=== PATIENT | male | born 1945 | race Caucasian/White ===

== ENCOUNTER → 2017-01-20 | Outpatient (CLI) | payer MEDICARE ==
--- NOTE | 2017-01-20 11:41 | MR ---
EXAMINATION TYPE: MR shoulder LT wo con DATE OF EXAM: 01/20/2017 11:24 AM COMPARISON: NONE HISTORY: Pain in left shoulder TECHNIQUE: Multiplanar, multisequence imaging of the left shoulder is performed without contrast. FINDINGS: There is no evidence of an os acromiale. There are moderate hypertrophic inflammatory changes in the left AC joint. The acromion is neutral. There is diffuse tendinosis involving the supraspinatus tendon as well as anterior fibers of the infr aspinatus tendon. No definite rotator cuff tear is seen. There is pseudocystic change in the humeral head, an indirect sign of impingement. There is also pseu docystic change in the glenoid. There is cartilaginous loss. There is some decentering of the humerus within the glenohumeral joint. There is a small amount of abnormal signal in the biceps tendon is intra-articular portion. This may represent some tendinosis or small intrasubstance tear. IMPRESSION: 1. DIFFUSE TENDINOSIS OF THE SUPRASPINATUS TENDON AND TO A LESSER EXTENT THE INFRASPINATUS TENDON. 2. EVIDENCE OF OSTEOARTHRITIS IN THE GLENOHUMERAL JOINT. 3. MODERATE HYPERTROPHIC INFLAMMATORY CHANGES IN THE LEFT AC JOINT. 4. PSEUDOCYSTIC CHANGES WITHIN THE HUMERAL HEAD, AN INDIRECT SIGN OF IMPINGEMENT. 5. SOME ABNORMAL SIGNAL WITHIN THE INTRA-ARTICULAR BICEPS TENDON, EITHER REPRESENTING SOME MILD TENDI NOSIS OR SMALL INTRASUBSTANCE TEAR.
== END | disposition home or self-care (01) ==
LOC: RADMRIMAIN 10:42
PROVIDERS: ATTEND Orthopaedic Surgery
DX: M19.012 Primary osteoarthritis, left shoulder (principal); M67.814 Other specified disorders of tendon, left shoulder

== ENCOUNTER → 2019-10-02 | Outpatient (CLI) | payer MEDICARE ==
--- NOTE | 2019-10-03 10:37 | BD ---
EXAMINATION TYPE: Axial Bone Density DATE OF EXAM: 10/02/2019 COMPARISON: NONE CLINICAL HISTORY: Height: Weight: FRAX RISK QUESTIONS: Alcohol (3 or more units per day): no Family History (Parent hip fracture): no Glucocorticoids (More than 3mos): no (Ex: prednisone, prednisolone, methylprednisolone, dexamethasone, and hydrocortisone). History of Fracture in Adulthood: no Secondary Osteoporosis: 1. Type 1 Diabetes: no 2. Hyperthyroidism: no 3. Menopause before 45: n/a 4. Malnutrition: no 5. Chronic liver disease: no Rheumatoid Arthritis: no Current Tobacco Use: no RISK FACTORS HISTORY OF: Family History of Osteoporosis: no Active: yes Diet low in dairy products/other sources of calcium: yes Lost more than 2 inches in height since high school: no MEDICATIONS: prilosec, benacar, lipitor, norvasc, vit d, eye meds, gout meds, water pill Additional History: EXAM MEASUREMENTS: Bone mineral densitometry was performed using the Venuemob System. Bone mineral density as measured about the Lumbar spine is: ----- L1-L4(G/cm2): 1.314 T Score Values are as follows: ----- L2: 1.4 ----- L3: 1.8 ----- L4: 0.5 ----- L1-L4: 1.1 Bone mineral density has: increased 0.5 % since study of: 08.03.2016 Bone mineral density about the R hip (g/cm2): 0.897 Bone mineral density about the L hip (g/cm2): 0.887 T Score values are as follows: -----R Neck: -1.0 -----L Neck: -1.1 -----R Total: -0.5 -----L Total: -0.7 Bone mineral density has: decreased -0.7 % since study of: 08.03.2016 IMPRESSION: No evidence for osteoporosis or osteopenia. NOTE: T-SCORE=SD OF THE YOUNG ADULT MEAN.
== END | disposition home or self-care (01) ==
LOC: RADBDWWP 15:40
PROVIDERS: ATTEND Family Medicine
DX: M89.9 Disorder of bone, unspecified (principal)
CPT/HCPCS: 77080

== ENCOUNTER 2019-11-28 08:03 | Day surgery (SDC) | payer MEDICARE ==
[2019-11-27 08:56] VITALS: BMI 28.5
[~2019-11-28 08:03] MED LIST: LACTATED RINGERS 1,000 ML IV SCH
[2019-11-28 08:28] VITALS: TEMP 97.6
[2019-11-28] MEDS ORDERED: PROPOFOL 10 MG/ML 20 ML VIAL IV ONE (08:48)
--- NOTE | 2019-11-28 08:49 | P.GSHP ---
History of Present Illness H&P Date: 11/28/19 Chief Complaint: History of rectal polyps This a 74-year-old male presents today for colonoscopy. Patient presents today for colonoscopy. He has a previous history of rectal polyps Past Medical History Past Medical History: Cancer, GERD/Reflux, Hyperlipidemia, Hypertension Additional Past Medical History / Comment(s): PROSTATE CANCER. GOUTY ARTHRITIS. 7MM POLYP FOUND ON MRI AT [facility] History of Any Multi-Drug Resistant Organisms: None Reported Past Surgical History: Hernia Repair, Orthopedic Surgery Additional Past Surgical History / Comment(s): HERNIA X 3, COLONOSCOPY, EGD, BILAT CATARACTS, LT SECOND TOE SX, GANGLION CYST FROM RT MIDDLE FINGER, REPAIR RT MIDDLE FINGER INJURY, FATTY CYSTS REMOVED FROM BACK AND AND CHEST, METAL REMOVED FROM RT EYE Past Anesthesia/Blood Transfusion Reactions: Postoperative Nausea & Vomiting (PONV) Smoking Status: Never smoker - Past Family History Mother Family Medical History: No Reported History Medications and Allergies Home Medications Medication Instructions Recorded Confirmed Type Acetaminophen/Caffeine [Excedrin 1 each PO DAILY 11/27/19 11/28/19 History Tension Headache Cplt] Allopurinol [Zyloprim] 300 mg PO DAILY 11/27/19 11/27/19 History Atorvastatin [Lipitor] 40 mg PO HS 11/27/19 11/28/19 History Colchicine 0.6 mg PO DAILY PRN 11/27/19 11/27/19 History Hydrochlorothiazide [Hydrodiuril] 25 mg PO DAILY 11/27/19 11/27/19 History Olmesartan Medoxomil [Benicar] 40 mg PO DAILY 11/27/19 11/28/19 History Omeprazole [PriLOSEC] 20 mg PO AC-BRKFST 11/27/19 11/28/19 History amLODIPine BESYLATE [Norvasc] 5 mg PO HS 11/27/19 11/27/19 History Allergies Allergy/AdvReac Type Severity Reaction Status Date / Time amoxicillin [From Augmentin] Allergy Rash/Hives Verified 11/28/19 08:22 atenolol [From Tenormin] Allergy Rash/Hives Verified 11/28/19 08:22 clavulanic acid Allergy Rash/Hives Verified 11/28/19 08:22 [From Augmentin] Penicillins Allergy Rash/Hives Verified 11/28/19 08:22 rabeprazole [From AcipHex] Allergy Rash/Hives Verified 11/28/19 08:22 Sulfa (Sulfonamide Allergy Rash/Hives Verified 11/28/19 08:22 Antibiotics) sulfamethoxazole Allergy Rash/Hives Verified 11/28/19 08:22 [From Bactrim] trimethoprim [From Bactrim] Allergy Rash/Hives Verified 11/28/19 08:22 monosodium glutamate [MSG] AdvReac Nausea & Verified 11/28/19 08:22 Vomiting Surgical - Exam Vital Signs Temp Pulse Resp BP Pulse Ox 97.6 F 75 18 173/87 98 11/28/19 08:27 11/28/19 08:27 11/28/19 08:27 11/28/19 08:27 11/28/19 08:27 - General well developed, well nourished, no distress - Eyes PERRL - ENT normal pinna - Neck no masses - Respiratory normal expansion - Cardiovascular Rhythm: regular - Abdomen Abdomen: soft, non tender Assessment and Plan Assessment: History of rectal polyps. We'll perform colonoscopy.
--- NOTE | 2019-11-28 09:14 | P.OP ---
Date of Procedure: 11/28/19 Preoperative Diagnosis: History of rectal polyps Postoperative Diagnosis: Diverticulosis Procedure(s) Performed: Colonoscopy Anesthesia: MAC Surgeon: Tarun Faria Pathology: none sent Condition: stable Disposition: PACU Description of Procedure: The patient's placed on the endoscopy table in the lateral position. He received IV sedation. Digital rectal exam was performed which revealed no abnormalities. Flexible colonoscope was then placed patient anus and passed throughout the colon. The scope could not be passed beyond the hepatic flexure secondary to poor bowel prep this point scope withdrawn. The transverse colon had diverticulosis. In the descending; there is extensive diverticular changes. Scope was then brought back the rectum this appeared normal. Scope was brought patient.
[2019-11-28 09:37] VITALS: BP 183/90; PULSE 69; RESP 16
== END 2019-11-28 09:57 | disposition home or self-care (01) ==
LOC: ORWHC2ENDO 08:03
PROVIDERS: ATTEND Surgery
DX: K57.30 Diverticulosis of large intestine without perforation or abscess without bleeding (principal); Z87.19 Personal history of other diseases of the digestive system; K21.9 Gastro-esophageal reflux disease without esophagitis; E78.5 Hyperlipidemia, unspecified; I10 Essential (primary) hypertension; M10.00 Idiopathic gout, unspecified site; Z85.46 Personal history of malignant neoplasm of prostate; Z98.890 Other specified postprocedural states; Z98.42 Cataract extraction status, left eye; Z98.41 Cataract extraction status, right eye; Z87.2 Personal history of diseases of the skin and subcutaneous tissue; Z87.828 Personal history of other (healed) physical injury and trauma; Z91.89 Other specified personal risk factors, not elsewhere classified; Z79.899 Other long term (current) drug therapy; Z88.0 Allergy status to penicillin; Z88.8 Allergy status to other drugs, medicaments and biological substances; Z88.2 Allergy status to sulfonamides; Z91.02 Food additives allergy status; Z97.2 Presence of dental prosthetic device (complete) (partial)
CPT/HCPCS: 45330; J2704; 45378

== ENCOUNTER 2021-07-09 04:36 | Emergency (ER) | payer MEDICARE ==
[2021-07-09] MEDS ORDERED: CASIRIVIMAB (REGN10933) (EUA) 600 MG, IMDEVIMAB (REGN10987) (EUA) 600 MG in SODIUM CHLO... IVPB ONE (05:45)
[2021-07-09] MEDS ORDERED: SODIUM CHLORIDE 0.9% 50 ML IVPB ONE (05:45)
[2021-07-09] MEDS ORDERED: ACETAMINOPHEN TAB 325 MG TAB PO STA (06:09)
--- NOTE | 2021-07-09 07:11 | XR ---
EXAMINATION TYPE: XR chest 1V portable DATE OF EXAM: 07/09/2021 COMPARISON: NONE HISTORY: Cough and fever, positive Covid test TECHNIQUE: Single frontal view of the chest is obtained. FINDINGS: Lung volumes are low and the patient is rotated. There is no evident pneumothorax or pleur al effusion. Patchy density noted within the lung bases. Cardiac mediastinal silhouette is within nor mal limits accounting for technique. Aorta is atheromatous. IMPRESSION: Correlate for atelectasis versus pneumonia, follow-up PA and lateral chest x-ray may be of benefit, exam is expiratory and rotated.
[2021-07-09 07:13] VITALS: PULSE 88
--- NOTE | 2021-07-09 07:22 | ED ---
General Adult HPI - General Chief complaint: Nausea/Vomiting/Diarrhea Stated complaint: Covid+ Time Seen by Provider: 07/09/21 04:42 Source: patient, EMS Mode of arrival: EMS Limitations: no limitations - History of Present Illness Initial comments: This patient is 75-year-old man who presents with complaint that he is feeling fatigued, having dyspnea, cough and fever. The patient states that he did test positive for Covid infection last week. He has been managing at home but over the past day to 2 hours been feeling worse and more worn down. Patient denies chest pain. No leg pain or swelling. No change in bowel movements or urination. -: days(s) Quality: aching Consistency: constant Improves with: none Worsens with: none Associated Symptoms: cough, fever/chills, weakness, other (Myalgias) - Related Data Home Medications Medication Instructions Recorded Confirmed Acetaminophen/Caffeine [Excedrin 1 each PO DAILY 11/27/19 11/28/19 Tension Headache Cplt] Atorvastatin [Lipitor] 40 mg PO HS 11/27/19 11/28/19 Colchicine 0.6 mg PO DAILY PRN 11/27/19 11/27/19 Olmesartan Medoxomil [Benicar] 40 mg PO DAILY 11/27/19 11/28/19 Omeprazole [PriLOSEC] 20 mg PO AC-BRKFST 11/27/19 11/28/19 allopurinoL [Zyloprim] 300 mg PO DAILY 11/27/19 11/27/19 amLODIPine BESYLATE [Norvasc] 5 mg PO HS 11/27/19 11/27/19 hydroCHLOROthiazide [Hydrodiuril] 25 mg PO DAILY 11/27/19 11/27/19 Previous Rx's Medication Instructions Recorded Azithromycin [Zithromax Z-pack (6 250 mg PO DIRECTED #6 tab 07/09/21 tabs)] Allergies Allergy/AdvReac Type Severity Reaction Status Date / Time amoxicillin [From Augmentin] Allergy Rash/Hives Verified 07/09/21 04:53 atenolol [From Tenormin] Allergy Rash/Hives Verified 07/09/21 04:53 clavulanic acid Allergy Rash/Hives Verified 07/09/21 04:53 [From Augmentin] Penicillins Allergy Rash/Hives Verified 07/09/21 04:53 rabeprazole [From AcipHex] Allergy Rash/Hives Verified 07/09/21 04:53 Sulfa (Sulfonamide Allergy Rash/Hives Verified 07/09/21 04:53 Antibiotics) sulfamethoxazole Allergy Rash/Hives Verified 07/09/21 04:53 [From Bactrim] trimethoprim [From Bactrim] Allergy Rash/Hives Verified 07/09/21 04:53 monosodium glutamate [MSG] AdvReac Nausea & Verified 07/09/21 04:53 Vomiting Review of Systems ROS Statement: Those systems with pertinent positive or pertinent negative responses have been documented in the HPI. ROS Other: All systems not noted in ROS Statement are negative. Constitutional: Reports: fever, chills, weakness ENT: Denies: throat pain Respiratory: Reports: dyspnea. Denies: cough, wheezes, hemoptysis Cardiovascular: Denies: chest pain, palpitations, orthopnea, edema, syncope Gastrointestinal: Denies: abdominal pain, nausea, vomiting, diarrhea, constipation Genitourinary: Denies: dysuria, hematuria Musculoskeletal: Reports: myalgia. Denies: back pain Skin: Denies: rash Neurological: Denies: headache, weakness, numbness Past Medical History Past Medical History: Cancer, GERD/Reflux, Hyperlipidemia, Hypertension Additional Past Medical History / Comment(s): PROSTATE CANCER. GOUTY ARTHRITIS. 7MM POLYP FOUND ON MRI AT [facility] History of Any Multi-Drug Resistant Organisms: None Reported Past Surgical History: Hernia Repair, Orthopedic Surgery Additional Past Surgical History / Comment(s): HERNIA X 3, COLONOSCOPY, EGD, BILAT CATARACTS, LT SECOND TOE SX, GANGLION CYST FROM RT MIDDLE FINGER, REPAIR RT MIDDLE FINGER INJURY, FATTY CYSTS REMOVED FROM BACK AND AND CHEST, METAL REMOVED FROM RT EYE Past Anesthesia/Blood Transfusion Reactions: Postoperative Nausea & Vomiting (PONV) Past Psychological History: No Psychological Hx Reported Smoking Status: Never smoker Past Alcohol Use History: None Reported Past Drug Use History: None Reported - Past Family History Mother Family Medical History: No Reported History General Exam Limitations: no limitations General appearance: alert, in no apparent distress Head exam: Present: atraumatic, normocephalic Eye exam: Present: normal appearance. Absent: scleral icterus, conjunctival injection ENT exam: Present: normal oropharynx Neck exam: Present: normal inspection, full ROM. Absent: meningismus Respiratory exam: Present: wheezes (There are a few scattered crackles bilaterally). Absent: normal lung sounds bilaterally, respiratory distress, rales, rhonchi, stridor, accessory muscle use, decreased breath sounds Cardiovascular Exam: Present: regular rate, normal rhythm, normal heart sounds. Absent: systolic murmur, diastolic murmur, rubs, gallop GI/Abdominal exam: Present: soft. Absent: distended, tenderness, guarding, rebound, rigid, mass Back exam: Present: normal inspection. Absent: CVA tenderness (R), CVA tenderness (L) Neurological exam: Present: alert Skin exam: Present: warm, dry, intact, normal color. Absent: rash Course Vital Signs 07/09/21 07/09/21 07/09/21 04:43 04:58 05:00 Temperature 102.7 F H Pulse Rate 98 97 Respiratory 22 22 20 Rate Blood Pressure 162/82 157/80 O2 Sat by Pulse 96 96 Oximetry 07/09/21 07/09/21 07/09/21 06:06 06:48 07:50 Temperature 101.2 F H 98.1 F Pulse Rate 101 H 88 Respiratory 20 20 18 Rate Blood Pressure 140/86 138/69 O2 Sat by Pulse 97 95 95 Oximetry 07/09/21 08:43 Temperature 98.1 F Pulse Rate 88 Respiratory 18 Rate Blood Pressure 109/63 O2 Sat by Pulse 95 Oximetry Medical Decision Making - Medical Decision Making Patient is 75-year-old man with Covid infection. Patient is given hydration and monoclonal antibody therapy. Patient's oxygen saturations are good. Discussed appropriate further care and follow-up as well as return parameters. Disposition Clinical Impression: COVID-19, Pneumonia Disposition: HOME SELF-CARE Condition: Fair Instructions (If sedation given, give patient instructions): Coronavirus Disease 2019 (COVID-19) Prescriptions: Azithromycin [Zithromax Z-pack (6 tabs)] 250 mg PO DIRECTED #6 tab Is patient prescribed a controlled substance at d/c from ED?: No Referrals: Sergio Sam DO [Primary Care Provider] - 1-2 days
[2021-07-09] MEDS ORDERED: SODIUM CHLORIDE 0.9% 1,000 ML IV ONE (07:27)
[2021-07-09 07:51] VITALS: RESP 18; TEMP 98.1
[2021-07-09 08:44] VITALS: BP 109/63
== END 2021-07-09 08:44 | disposition home or self-care (01) ==
LOC: EC 04:36
DX: U07.1 COVID-19 (principal); J12.82 Pneumonia due to coronavirus disease 2019; I10 Essential (primary) hypertension; K21.9 Gastro-esophageal reflux disease without esophagitis; E78.5 Hyperlipidemia, unspecified; Z88.0 Allergy status to penicillin; Z88.2 Allergy status to sulfonamides; Z88.1 Allergy status to other antibiotic agents; Z85.46 Personal history of malignant neoplasm of prostate
CPT/HCPCS: 99285; 96365; 96361; 71045; Q0243

== ENCOUNTER → 2021-10-04 | Outpatient (CLI) | payer MEDICARE ==
--- NOTE | 2021-10-05 13:20 | ECHOF ---
Referral Reason:R60.0 edema, R42 dizzinesss MEASUREMENTS -------- HEIGHT: 182.9 cm WEIGHT: 99.3 kg BP: RVIDd: 3.2 cm (< 3.3) IVSd: 1.0 cm (0.6 - 1.1) LVIDd: 4.3 cm (3.9 - 5.3) LVPWd: 1.4 cm (0.6 - 1.1) IVSs: 1.5 cm LVIDs: 3.7 cm LVPWs: 1.3 cm LAESV Index (A-L): 19.36 ml/m Ao Diam: 4.1 cm (2.0 - 3.7) AV Cusp: 2.3 cm (1.5 - 2.6) MV EXCURSION: 10.542 mm (> 18.000) MV EF SLOPE: 53 mm/s (70 - 150) EPSS: 0.6 cm MV E Omari: 0.50 m/s MV DecT: 250 ms MV A Omari: 0.85 m/s MV E/A Ratio: 0.59 AR PHT: 446 ms RAP: 5.00 mmHg RVSP: 28.21 mmHg FINDINGS -------- Sinus rhythm. This was a technically good study. LV size, wall thickness and systolic function are normal, with an EF greater than 55%. The left zhao tricular size is normal. The right ventricle is normal in size. Normal LA size by volume 22+/-6 ml/m2. The right atrial size is normal. There is mild aortic regurgitation. Mild mitral annular calcification present. Mild mitral regurgitation is present. Mild tricuspid regurgitation present. Right ventricular systolic pressure is normal at < 35 mmHg. There is no pulmonic regurgitation present. Echo free space represents a pericardial fat pad. CONCLUSIONS -------- 1. LV size, wall thickness and systolic function are normal, with an EF greater than 55%. 2. The left ventricular size is normal. 3. The right ventricle is normal in size. 4. Normal LA size by volume 22+/-6 ml/m2. 5. The right atrial size is normal. 6. There is mild aortic regurgitation. 7. Mild mitral annular calcification present. 8. Mild mitral regurgitation is present. 9. Mild tricuspid regurgitation present. 10. Echo free space represents a pericardial fat pad. GARDENER: Elsie Paiz RDCS
== END | disposition home or self-care (01) ==
LOC: RADECHMAIN 14:14
PROVIDERS: ATTEND Family Medicine
DX: I35.8 Other nonrheumatic aortic valve disorders (principal)
CPT/HCPCS: 93306

== ENCOUNTER → 2021-10-04 | Outpatient (CLI) | payer MEDICARE ==
--- NOTE | 2021-10-04 19:11 | US ---
EXAMINATION TYPE: US carotid duplex BILAT DATE OF EXAM: 10/04/2021 COMPARISON: NONE CLINICAL HISTORY: 76-year-old male R42 DIZZINESS AND GIDDINESS,R53.83 FATIGUE. TECHNIQUE: Carotid duplex ultrasound examination. Indirect Doppler criteria was utilized. FINDINGS: EXAM MEASUREMENTS: RIGHT: Peak Systolic Velocity (PSV) cm/sec ----- Right CCA: 94.4 ----- Right ICA: 113 ----- Right ECA: 143 ICA/CCA ratio: 1.1 RIGHT: End Diastole cm/sec ----- Right CCA: 17.2 ----- Right ICA: 35.6 ----- Right ECA: 26.8 LEFT: Peak Systolic Velocity (PSV) cm/sec ----- Left CCA: 104 ----- Left ICA: 106 ----- Left ECA: 109 ICA/CCA ratio: 1.0 LEFT: End Diastole cm/sec ----- Left CCA: 24 ----- Left ICA: 27 ----- Left ECA: 12 VERTEBRALS (direction of flow): Right Vertebral: Antegrade Left Vertebral: Antegrade Rhythm: Normal Aircraft Maintenance Supervisor notes: Plaque seen in the left bulb/ ECA prox No elevated velocities IMPRESSION: No hemodynamically significant internal carotid artery stenosis on either side. Criteria for Assigning % of Stenosis / Diameter reduction (Estimation based on the indirect measurements of the internal carotid artery velocities (ICA PSV). 1. Normal (no stenosis)=ICA PSV < 125 cm/s: ratio < 2.0: ICA EDV<40 cm/s. 2. Less than 50% stenosis=ICA PSV < 125 cm/s: ratio < 2.0: ICA EDV<40 cm/s. 3. 50 to 69% stenosis=ICA PSV of 125 to 230 cm/s: ration 2.0 ? 4.0: ICA EDV 40-100 cm/s. 4. Greater than 70% stenosis to near occlusion= ICA PSV > 230 cm/s: ratio > 4.0: ICA EDV > 100 cm/s. 5. Near occlusion= ICA PSV velocities may be low or undetectable: variable ratio and ICA EDV. 6. Total occlusion=unable to detect flow.
== END | disposition home or self-care (01) ==
LOC: RADUSWWP 13:32
PROVIDERS: ATTEND Family Medicine
DX: R42 Dizziness and giddiness (principal); R53.83 Other fatigue
CPT/HCPCS: 93880